=== PATIENT | female | born 1965 | race Asian ===

== ENCOUNTER 2019-09-28 00:46 | Emergency (ER) | payer OTHER ==
[~2019-09-28] VITALS: Ht 157.5 cm; Wt 68.2 kg
[~2019-09-28 00:46] MED LIST: ASPIR-LOW81 MG PO; ASPIRIN E.C. 8181 MG PO; CARDIZEM120 MG PO; CELEBREX 200MG200 MG PO; COLACE 100100 MG/CAP PO; IMDUR 30MG30 MG/TAB PO; INDERAL80 MG PO; ISMO 20MG20 MG PO; MILLIPRED5 MG PO; MONOKET20 MG PO; NITROSTAT0.4 MG/TAB SL; NORCO 325 MG-51 TAB PO; OMEGA 31000 MG PO; OMEGA3; PERCOCET 325 MG1 TA2 PO; PLAQUENIL 200M200 MG PO; PRIL40 PO; PRINZIDE 25 MG-1 TAB PO; PROTONIX 40MG T40 MG PO; TAPAZOLE5 MG PO; ZESTORETIC 25 M1 TAB PO; ZOCOR; ZOFRAN8 MG PO; [UNRECOGNIZED DRUG - OTHER]
[2019-09-28 00:48] VITALS: BP 145/86; TEMP 97.6
[2019-09-28 01:45] LABS: BASO # 0.1 (0.0-0.2); BASO % 0.6 % (0.0-2.0); EOS # 0.2 (0.0-0.7); EOS % 2.8 % (0-4.0); GRAN # 2.5 (1.4-6.5); GRAN % 32.5 % (42.2-75.2); HEMATOCRIT 44.2 % (37.0-47.0); HEMOGLOBIN 14.5 g/dl (12.5-16.0); LYMPH # 4.5 (1.2-3.4); LYMPH % 57.8 % (20.0-51.0); MEAN CELL VOLUME 86 fl (80.0-100.0); MEAN CORPUSCULAR HEMOGLOBIN 28 pg (27.0-31.0); MEAN CORPUSCULAR HGB CONC 33 g/dl (33.0-37.0); MEAN PLATELET VOLUME 8.8 fl (7.4-10.4); MONO # 0.5 (0.1-0.6); MONO % 6.2 % (1.7-9.3); PLATELET COUNT 273 K/mm3 (130-400); RED BLOOD COUNT 5.16 M/mm3 (4.10-5.30); REDCELL DISTRIBUTION WIDTH-CV 12.4 % (11.5-14.5)
[2019-09-28 01:58] LABS: ALANINE AMINOTRANSFERASE 50 U/L (9-52); ALBUMIN 4.6 gm/dL (3.5-5.0); ALKALINE PHOSPHATASE 72 U/L (50-136); ANION GAP 10 mmol/L (7-16); AST,SGOT 37 U/L (15-37); BILIRUBIN,TOTAL 0.3 mg/dL (0.0-1.0); BLOOD UREA NITROGEN 17 mg/dL (7-17); CALCIUM 9.6 mg/dL (8.4-10.2); CARBON DIOXIDE 26 mmol/L (22-30); CHLORIDE 103 mmol/L (98-107); CREATININE, serum 0.62 (0.52-1.25); GLUCOSE 104 mg/dL (74-106); POTASSIUM 3.9 mmol/L (3.4-5.0); SODIUM 139 mmol/L (137-145); TOTAL PROTEIN 7.7 gm/dL (6.4-8.2)
[2019-09-28 01:59] LABS: C-REACTIVE PROTEIN < 0.5 mg/dL (0.0-0.9)
[2019-09-28 03:19] VITALS: PULSE 81
== END 2019-09-28 03:19 | disposition home or self-care (01) ==
LOC: COL.ER 00:46
PROVIDERS: Nurse Practitioner
DX: R51 Headache (principal); I25.10 Atherosclerotic heart disease of native coronary artery without angina pectoris; I10 Essential (primary) hypertension; Z79.82 Long term (current) use of aspirin
CPT/HCPCS: J1200; J2765; J7030

== ENCOUNTER 2020-02-02 22:15 | Emergency (ER) | payer OTHER ==
[~2020-02-02] VITALS: Ht 157.5 cm; Wt 70.5 kg
[2020-02-02 22:19] VITALS: TEMP 97.4
[2020-02-02] MEDS ORDERED: PRINIVIL20 MG PO (22:35)
[2020-02-02] MEDS ORDERED: HCTZ 25MG TAB25 MG PO (22:35)
[2020-02-02] MEDS ORDERED: MITIGARE0.6 MG (22:36)
[2020-02-02] MEDS ORDERED: VITAMIN D 50,1.25 MG PO (22:38)
[2020-02-02 22:42] LABS: PROTHROMBIN TIME 11.1 SECONDS (9.7-12.8)
[2020-02-02 22:45] LABS: PARTIAL THROMBOPLASTIN TIME 32.7 SECONDS (26.0-37.0)
[2020-02-02 22:50] LABS: ALANINE AMINOTRANSFERASE 40 U/L (4-34); ALKALINE PHOSPHATASE 66 U/L (50-136); ANION GAP 7 mmol/L (7-16); AST,SGOT 30 U/L (15-37); BILIRUBIN,TOTAL 0.5 mg/dL (0.0-1.0); BLOOD UREA NITROGEN 17 mg/dL (7-17); CALCIUM 9.1 mg/dL (8.4-10.2); CARBON DIOXIDE 27 mmol/L (22-30); CHLORIDE 106 mmol/L (98-107); CREATININE, serum 0.66 (0.52-1.25); GLUCOSE 102 mg/dL (74-106); POTASSIUM 4.1 mmol/L (3.4-5.0); SODIUM 140 mmol/L (137-145); TOTAL PROTEIN 7.5 gm/dL (6.4-8.2)
[2020-02-02 22:51] LABS: BASO % 0.5 % (0.0-2.0); EOS # 0.2 (0.0-0.7); EOS % 3.2 % (0-4.0); GRAN # 2.7 (1.4-6.5); HEMATOCRIT 42.7 % (37.0-47.0); HEMOGLOBIN 13.8 g/dl (12.5-16.0); LYMPH # 4.2 (1.2-3.4); LYMPH % 54.9 % (20.0-51.0); MEAN CELL VOLUME 86 fl (80.0-100.0); MEAN CORPUSCULAR HEMOGLOBIN 28 pg (27.0-31.0); MEAN CORPUSCULAR HGB CONC 32 g/dl (33.0-37.0); MEAN PLATELET VOLUME 9.5 fl (7.4-10.4); MONO # 0.5 (0.1-0.6); MONO % 6.3 % (1.7-9.3); PLATELET COUNT 264 K/mm3 (130-400); RED BLOOD COUNT 4.94 M/mm3 (4.10-5.30); REDCELL DISTRIBUTION WIDTH-CV 12.7 % (11.5-14.5)
[2020-02-02 23:01] LABS: ALBUMIN 4.3 gm/dL (3.5-5.0)
[2020-02-02 23:03] LABS: TROPONIN-I < 0.012 ng/mL (0.000-0.035)
[2020-02-03] MEDS ORDERED: PROTONIX 40MG T40 MG PO (02:59)
[2020-02-03 03:07] VITALS: BP 151/88; PULSE 74
== END 2020-02-03 02:49 | disposition home or self-care (01) ==
LOC: COL.ER 22:15
PROVIDERS: Family Medicine
DX: R07.89 Other chest pain (principal); I10 Essential (primary) hypertension; Z79.82 Long term (current) use of aspirin

== ENCOUNTER 2020-03-22 19:56 | Emergency (ER) | payer OTHER ==
[~2020-03-22] VITALS: Ht 154.9 cm; Wt 70.5 kg
[~2020-03-22 19:56] MED LIST changes: +HCTZ 25MG TAB25 MG PO; +MITIGARE0.6 MG; +PRINIVIL20 MG PO; +VITAMIN D 50,1.25 MG PO
[2020-03-22 20:01] VITALS: TEMP 98.9
[2020-03-22 20:35] LABS: BASO # 0.1 (0.0-0.2); BASO % 0.9 % (0.0-2.0); EOS # 0.2 (0.0-0.7); EOS % 2.8 % (0-4.0); GRAN # 2.9 (1.4-6.5); GRAN % 36.7 % (42.2-75.2); HEMATOCRIT 43.4 % (37.0-47.0); LYMPH # 4.2 (1.2-3.4); LYMPH % 53.5 % (20.0-51.0); MEAN CELL VOLUME 87 fl (80.0-100.0); MEAN CORPUSCULAR HEMOGLOBIN 28 pg (27.0-31.0); MEAN CORPUSCULAR HGB CONC 32 g/dl (33.0-37.0); MEAN PLATELET VOLUME 9.4 fl (7.4-10.4); MONO # 0.5 (0.1-0.6); MONO % 5.8 % (1.7-9.3); PLATELET COUNT 269 K/mm3 (130-400); RED BLOOD COUNT 4.99 M/mm3 (4.10-5.30)
[2020-03-22 20:49] LABS: ALANINE AMINOTRANSFERASE 24 U/L (4-34); ALBUMIN 4.2 gm/dL (3.5-5.0); ALKALINE PHOSPHATASE 60 U/L (50-136); ANION GAP 7 mmol/L (7-16); AST,SGOT 25 U/L (15-37); BILIRUBIN,TOTAL 0.5 mg/dL (0.0-1.0); BLOOD UREA NITROGEN 17 mg/dL (7-17); CALCIUM 8.8 mg/dL (8.4-10.2); CARBON DIOXIDE 28 mmol/L (22-30); CHLORIDE 103 mmol/L (98-107); CREATININE, serum 0.79 (0.52-1.25); GLUCOSE 107 mg/dL (74-106); POTASSIUM 3.5 mmol/L (3.4-5.0); SODIUM 139 mmol/L (137-145); TOTAL PROTEIN 7.4 gm/dL (6.4-8.2)
[2020-03-22 20:54] LABS: C-REACTIVE PROTEIN < 0.5 mg/dL (0.0-0.9); ERYTHROCYTE SEDIMENTATION RATE 1 mm/hr (0-30)
[2020-03-22 22:13] VITALS: BP 116/62; PULSE 63
== END 2020-03-22 22:13 | disposition home or self-care (01) ==
LOC: COL.ER 19:56
PROVIDERS: Emergency Medicine
DX: R51 Headache (principal); Z86.69 Personal history of other diseases of the nervous system and sense organs
CPT/HCPCS: J1885; J2405; J3010; J7030

== ENCOUNTER 2021-11-12 20:51 | Emergency (ER) | payer OTHER ==
[~2021-11-12] VITALS: Ht 157.5 cm; Wt 72.7 kg
[2021-11-12 20:57] VITALS: TEMP 97.2
[2021-11-12 21:21] LABS: BASO # 0.1 K/mm3 (0.0-0.2); BASO % 1.1 % (0.0-2.0); EOS # 0.2 K/mm3 (0.0-0.7); EOS % 2.4 % (0.0-4.0); GRAN # 2.8 K/mm3 (1.4-6.5); GRAN % 36.5 % (42.2-75.2); HEMATOCRIT 44.7 % (37.0-47.0); HEMOGLOBIN 15.1 g/dl (12.5-16.0); LYMPH # 4.1 K/mm3 (1.2-3.4); LYMPH % 53.6 % (20.0-51.0); MEAN CELL VOLUME 83 fl (80.0-100.0); MEAN CORPUSCULAR HEMOGLOBIN 28 pg (27-31); MEAN CORPUSCULAR HGB CONC 34 g/dl (33.0-37.0); MEAN PLATELET VOLUME 9.1 fl (7.4-10.4); MONO # 0.5 K/mm3 (0.1-0.6); MONO % 6.3 % (1.7-9.3); PLATELET COUNT 317 K/mm3 (130-400); RED BLOOD COUNT 5.37 M/mm3 (4.10-5.30)
[2021-11-12 21:38] LABS: ALANINE AMINOTRANSFERASE 30 U/L (0-55); ALBUMIN 4.4 gm/dL (3.5-5.0); ALKALINE PHOSPHATASE 66 U/L (40-150); ANION GAP 12 mmol/L (7-16); AST,SGOT 18 U/L (5-34); BILIRUBIN,TOTAL 0.4 mg/dL (0.2-1.2); BLOOD UREA NITROGEN 13 mg/dL (10-20); CALCIUM 9.3 mg/dL (8.4-10.2); CARBON DIOXIDE 26 mmol/L (22-29); CHLORIDE 105 mmol/L (98-107); CREATININE, serum 0.77 mg/dL (0.57-1.11); GLUCOSE 110 mg/dL (70-99); LIPASE 20 U/L (8-78); POTASSIUM 3.6 mmol/L (3.5-4.5); SODIUM 143 mmol/L (136-145); TOTAL PROTEIN 7.6 gm/dL (6.2-8.1)
[2021-11-12 21:51] LABS: TROPONIN-I < 0.010 ng/mL (0.00-0.033)
[2021-11-12] MEDS ORDERED: ANTIVERT 25MG25 MG PO (22:14)
[2021-11-12 22:29] VITALS: BP 123/57; PULSE 75
== END 2021-11-12 22:26 | disposition home or self-care (01) ==
LOC: COL.ER 20:51
PROVIDERS: Emergency Medicine
DX: R42 Dizziness and giddiness (principal); R11.0 Nausea; R51.9 Headache, unspecified; Z20.822 Contact with and (suspected) exposure to COVID-19
CPT/HCPCS: J2405; J7030

== ENCOUNTER 2021-11-23 22:23 | Emergency (ER) | payer OTHER ==
[~2021-11-23] VITALS: Ht 157.5 cm; Wt 72.7 kg
[~2021-11-23 22:23] MED LIST changes: +ANTIVERT 25MG25 MG PO
[2021-11-23 22:35] VITALS: TEMP 98.6
[2021-11-23] MEDS ORDERED: MUCINEX 60600 MG/TA1 PO (22:46)
[2021-11-23] MEDS ORDERED: TESSALON P100 MG/CAP PO (22:47)
[2021-11-23 23:33] LABS: BASO # 0.1 K/mm3 (0.0-0.2); BASO % 0.5 % (0.0-2.0); EOS # 0.2 K/mm3 (0.0-0.7); EOS % 1.8 % (0.0-4.0); GRAN # 7.1 K/mm3 (1.4-6.5); GRAN % 59.6 % (42.2-75.2); HEMATOCRIT 42.5 % (37.0-47.0); HEMOGLOBIN 13.7 g/dl (12.5-16.0); LYMPH # 3.5 K/mm3 (1.2-3.4); LYMPH % 29.4 % (20.0-51.0); MEAN CELL VOLUME 87 fl (80.0-100.0); MEAN CORPUSCULAR HEMOGLOBIN 28 pg (27-31); MEAN CORPUSCULAR HGB CONC 32 g/dl (33.0-37.0); MONO % 8.5 % (1.7-9.3); PLATELET COUNT 245 K/mm3 (130-400); RED BLOOD COUNT 4.87 M/mm3 (4.10-5.30); REDCELL DISTRIBUTION WIDTH-CV 12.8 % (11.5-14.5)
[2021-11-23 23:35] LABS: PROTHROMBIN TIME 11.4 SECONDS (9.7-12.8)
[2021-11-23 23:37] LABS: PARTIAL THROMBOPLASTIN TIME 31.8 SECONDS (26.0-37.0)
[2021-11-23 23:41] LABS: ALANINE AMINOTRANSFERASE 31 U/L (0-55); ALBUMIN 3.9 gm/dL (3.5-5.0); ALKALINE PHOSPHATASE 60 U/L (40-150); ANION GAP 12 mmol/L (7-16); AST,SGOT 17 U/L (5-34); BILIRUBIN,TOTAL 0.3 mg/dL (0.2-1.2); BLOOD UREA NITROGEN 10 mg/dL (10-20); CALCIUM 8.7 mg/dL (8.4-10.2); CARBON DIOXIDE 22 mmol/L (22-29); CHLORIDE 106 mmol/L (98-107); CREATININE, serum 0.63 mg/dL (0.57-1.11); GLUCOSE 114 mg/dL (70-99); POTASSIUM 3.5 mmol/L (3.5-4.5); SODIUM 140 mmol/L (136-145); TOTAL PROTEIN 6.7 gm/dL (6.2-8.1)
[2021-11-23 23:51] LABS: TROPONIN-I < 0.010 ng/mL (0.00-0.033)
[2021-11-24 01:56] VITALS: BP 138/78; PULSE 92
== END 2021-11-24 00:51 | disposition home or self-care (01) ==
LOC: COL.ER 22:23
PROVIDERS: Family Medicine
DX: B34.9 Viral infection, unspecified (principal); Z20.822 Contact with and (suspected) exposure to COVID-19
CPT/HCPCS: J7030

== ENCOUNTER 2022-04-17 09:15 | Observation (INO) | payer OTHER ==
[~2022-04-17] VITALS: Ht 5.1 cm; Wt 72.7 kg
[~2022-04-17 09:15] MED LIST changes: +MUCINEX 60600 MG/TA1 PO; +TESSALON P100 MG/CAP PO
[2022-04-17 09:36] LABS: BASO # 0.1 K/mm3 (0.0-0.2); BASO % 0.8 % (0.0-2.0); EOS # 0.1 K/mm3 (0.0-0.7); EOS % 1.3 % (0.0-4.0); GRAN # 3.2 K/mm3 (1.4-6.5); GRAN % 42.5 % (42.2-75.2); HEMOGLOBIN 15.3 g/dl (12.5-16.0); LYMPH # 3.7 K/mm3 (1.2-3.4); LYMPH % 49.7 % (20.0-51.0); MEAN CELL VOLUME 84 fl (80.0-100.0); MEAN CORPUSCULAR HEMOGLOBIN 28 pg (27-31); MEAN CORPUSCULAR HGB CONC 34 g/dl (33.0-37.0); MEAN PLATELET VOLUME 9.3 fl (7.4-10.4); MONO # 0.4 K/mm3 (0.1-0.6); MONO % 5.2 % (1.7-9.3); PLATELET COUNT 277 K/mm3 (130-400); RED BLOOD COUNT 5.38 M/mm3 (4.10-5.30); REDCELL DISTRIBUTION WIDTH-CV 12.8 % (11.5-14.5)
[2022-04-17 10:06] LABS: ALBUMIN 4.3 gm/dL (3.5-5.0); BILIRUBIN,TOTAL 0.6 mg/dL (0.2-1.2); CALCIUM 9.4 mg/dL (8.4-10.2); CREATININE, serum 0.72 mg/dL (0.57-1.11); POTASSIUM 3.6 mmol/L (3.5-4.5); TOTAL PROTEIN 7.5 gm/dL (6.2-8.1)
[2022-04-17 10:14] LABS: TROPONIN-I 0.036 ng/mL (0.00-0.033)
[2022-04-17 10:28] LABS: COLLECTION METHOD CLEAN CATCH
[2022-04-17 10:49] LABS: SQUAMOUS EPITHELIAL 0-2 /hpf (0-10); URINE APPEARANCE Clear (CLEAR/HAZY); URINE BACTERIA None Seen /hpf (NONE SEEN); URINE BLOOD TRACE-INTACT (NEGATIVE); URINE COLOR Yellow (YELLOW); URINE GLUCOSE Negative (NEGATIVE); URINE KETONE Negative (NEGATIVE); URINE NITRATE Negative (NEGATIVE); URINE PROTEIN(semi-quant) Negative (NEGATIVE); URINE RBC 0-2 /hpf (0-2); URINE UROBILINOGEN 0.2 E.U/dL (0.2-1.0)
[2022-04-17] MEDS ORDERED: ISORDIL 20MG20 M1 PO (13:59)
[2022-04-17] MEDS ORDERED: TAZTIA120 PO (14:00)
[2022-04-17 15:31] VITALS: BP 131/68; PULSE 72; TEMP 98.3
[2022-04-17 20:38] VITALS: BP 132/64; PULSE 72; TEMP 97.8
[2022-04-17] MEDS ORDERED: VITAMIN E 400 U4001 PO (20:43)
--- NOTE | 2022-04-17 21:26 | NUR ---
Patient assessed around 2024. Alert and oriented, but drowsy. Denies pain at time of assessement. had left and got medications. Completed med rec based of medications. states that he was not told about visiting hours and that he could not stay that night. Called [employer] and agreed that would stay tonight, but administrators would have to approve for tomorrow night if patient is still here. Updated who voiced understanding. Patient in bed with call light within reach. Voices no questions, needs, or concerns at this time. is aware that patient is not to take any home medications while in the hospital.
[2022-04-18] VITALS (9 sets, daily range): BP systolic 113–145; BP diastolic 45–83; PULSE 63–116; TEMP 98–98.2
--- NOTE | 2022-04-18 05:53 | NUR ---
Patient has denied having pain and discomfort this shift. Voices no questions, needs, or concerns at this time. Has been NPO since midnight for lexiscan today. remains at bedside.
[2022-04-18 06:46] LABS: BASO # 0.1 K/mm3 (0.0-0.2); BASO % 0.7 % (0.0-2.0); EOS # 0.1 K/mm3 (0.0-0.7); EOS % 1.3 % (0.0-4.0); GRAN # 3.8 K/mm3 (1.4-6.5); HEMATOCRIT 44.9 % (37.0-47.0); HEMOGLOBIN 15.4 g/dl (12.5-16.0); LYMPH # 3.3 K/mm3 (1.2-3.4); LYMPH % 42.6 % (20.0-51.0); MEAN CELL VOLUME 83 fl (80.0-100.0); MEAN CORPUSCULAR HEMOGLOBIN 29 pg (27-31); MEAN CORPUSCULAR HGB CONC 34 g/dl (33.0-37.0); MEAN PLATELET VOLUME 9.8 fl (7.4-10.4); MONO # 0.5 K/mm3 (0.1-0.6); MONO % 6.3 % (1.7-9.3); PLATELET COUNT 270 K/mm3 (130-400); REDCELL DISTRIBUTION WIDTH-CV 12.7 % (11.5-14.5)
[2022-04-18 06:51] LABS: TROPONIN-I 0.029 ng/mL (0.00-0.033)
[2022-04-18 06:59] LABS: CALCIUM 9.5 mg/dL (8.4-10.2); CHOLESTEROL RISK RATIO 3.9; CREATININE, serum 0.65 mg/dL (0.57-1.11); POTASSIUM 3.4 mmol/L (3.5-4.5)
--- NOTE | 2022-04-18 08:08 | NUR ---
Providing care for this patient with primary nurse SHARAD Astudillo from [phone]
--- NOTE | 2022-04-18 09:36 | NUR ---
Patient is resting in bed, alert and oriented x 4, VSS. Denies any chest pain or other discomfort. at the bedside. Telemetry in place, NSR. Has been NPO for procedured. Assessment completed, no other needs at this time. Call light within reach.
--- NOTE | 2022-04-18 12:46 | NUR ---
Patient and were provided with discharge information. All questions answered. IV and telemetry were discontinued. Pt is taken downstair to the entrance by staff.
--- NOTE | 2022-04-18 13:19 | NUR ---
Primary nurse was assisted with [id number] patient care by [employer] [facility] student Annie Cortez and [employer] [facility] [employer] instructor Regina TAYLOR RN.
== END 2022-04-18 12:48 | disposition home or self-care (01) ==
LOC: COL.ER 09:15 → MEDICAL 10:30
PROVIDERS: Emergency Medicine; Physician Assistant; ADMIT Student in an Organized Health Care Education/Training Program
DX: R77.8 Other specified abnormalities of plasma proteins (principal); R51.9 Headache, unspecified; R11.0 Nausea; I10 Essential (primary) hypertension; M19.90 Unspecified osteoarthritis, unspecified site; Z79.899 Other long term (current) drug therapy; I08.1 Rheumatic disorders of both mitral and tricuspid valves; Z86.79 Personal history of other diseases of the circulatory system
CPT/HCPCS: A9500; G0378; J1200; J1650; J2765; J2785; J3480; J7030

== ENCOUNTER 2024-03-12 08:11 | Emergency (ER) | payer OTHER ==
[~2024-03-12] VITALS: Ht 157.5 cm; Wt 72.7 kg
[~2024-03-12 08:11] MED LIST changes: +ISORDIL 20MG20 M1 PO; +PREDNISONE10 MG PO; +TAZTIA120 PO; +VITAMIN E 400 U4001 PO
[2024-03-12 08:16] VITALS: BP 109/65; TEMP 97.5
[2024-03-12] MEDS ORDERED: NATURAL MAGNES200 MG PO (08:23)
[2024-03-12] MEDS ORDERED: Ondansetron 4 MG/2 ML VIAL IV ONE (08:30)
[2024-03-12] MEDS ORDERED: NS 1,000 ML IV ONE (08:30)
[2024-03-12] MEDS ORDERED: Morphine 4 MG/ML VIAL IV PRN (08:30)
[2024-03-12 08:48] LABS: BASO # 0.1 K/mm3 (0.0-0.2); BASO % 0.4 % (0.0-2.0); EOS # 0.1 K/mm3 (0.0-0.7); EOS % 0.6 % (0.0-4.0); GRAN # 8.9 K/mm3 (1.4-6.5); GRAN % 70.2 % (42.2-75.2); HEMATOCRIT 43.8 % (37.0-47.0); HEMOGLOBIN 14.3 g/dl (12.5-16.0); LYMPH # 3.1 K/mm3 (1.2-3.4); LYMPH % 24.2 % (20.0-51.0); MEAN CELL VOLUME 87 fl (80.0-100.0); MEAN CORPUSCULAR HEMOGLOBIN 28 pg (27-31); MEAN CORPUSCULAR HGB CONC 33 g/dl (33.0-37.0); MONO # 0.5 K/mm3 (0.1-0.6); MONO % 4.2 % (1.7-9.3); PLATELET COUNT 281 K/mm3 (130-400); RED BLOOD COUNT 5.04 M/mm3 (4.10-5.30); REDCELL DISTRIBUTION WIDTH-CV 13.3 % (11.5-14.5)
[2024-03-12 09:33] LABS: ALBUMIN 3.4 g/dL (3.5-5.0); BILIRUBIN,TOTAL 0.3 mg/dL (0.2-1.2); CALCIUM 8.3 mg/dL (8.4-10.2); CREATININE, serum 0.65 mg/dL (0.57-1.11); POTASSIUM 3.6 mEq/L (3.5-4.5); TOTAL PROTEIN 5.9 g/dl (6.2-8.1)
[2024-03-12 09:33] LABS: COLLECTION METHOD CLEAN CATCH
[2024-03-12] MEDS ORDERED: NS 100 ML IV ONE (09:41)
[2024-03-12] MEDS ORDERED: Iohexol 300 - 100 ML VIAL IV ONE (09:41)
[2024-03-12 09:58] LABS: PH 5.5 (5.0-8.5); URINE APPEARANCE Clear (CLEAR/HAZY); URINE BLOOD Negative (NEGATIVE); URINE COLOR Yellow (YELLOW); URINE GLUCOSE Negative (NEGATIVE); URINE KETONE Negative (NEGATIVE); URINE NITRATE Negative (NEGATIVE); URINE PROTEIN(semi-quant) Negative (NEGATIVE); URINE UROBILINOGEN 0.2 E.U/dL (0.2-1.0)
[2024-03-12 11:36] VITALS: PULSE 65
== END 2024-03-12 11:49 | disposition home or self-care (01) ==
LOC: COL.ER 08:11
PROVIDERS: Personal Emergency Response Attendant
DX: R10.10 Upper abdominal pain, unspecified (principal); R11.0 Nausea
CPT/HCPCS: J2270; J2405; J7030; Q9967

== ENCOUNTER 2024-04-30 09:08 | Emergency (ER) | payer OTHER ==
[~2024-04-30] VITALS: Ht 157.5 cm; Wt 74.5 kg
[~2024-04-30 09:08] MED LIST changes: +NATURAL MAGNES200 MG PO
[2024-04-30 09:20] VITALS: BP 120/74; TEMP 98.4
[2024-04-30] MEDS ORDERED: Tetanus,Diphther Toxoid Adult 0.5 ML SYRINGE IM ONE (09:45)
[2024-04-30 10:21] VITALS: PULSE 70
== END 2024-04-30 10:21 | disposition home or self-care (01) ==
LOC: COL.ER 09:08
DX: S61.211A Laceration without foreign body of left index finger without damage to nail, initial encounter (principal); Z23 Encounter for immunization; X58.XXXA Exposure to other specified factors, initial encounter; Y93.89 Activity, other specified; Y92.009 Unspecified place in unspecified non-institutional (private) residence as the place of occurrence of the external cause